=== PATIENT | male | born 2005 | race Hispanic/Latino ===

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

== ENCOUNTER 2024-01-07 13:12 | Emergency (ER) | payer OTHER ==
[2024-01-07 14:11] LABS: #Basophils 0.04 10x3/uL (0.0-0.2); #Monocytes 0.86 10x3/uL (0.0-1.1); #Neutrophils 7.57 10x3/uL (1.5-8.4); %Basophils 0.3 % (0.0-2.0); %Eosinophils 2.6 % (0.0-6.0); %Lymphocytes 23.2 % (18.0-47.0); %Monocytes 7.5 % (0.0-10.0); %Neutrophils 66.1 % (40.0-75.0); Hematocrit 34.1 % (38.8-50.0); Hemoglobin 10.8 g/dL (13.5-17.5); Mean Corpuscular HGB CONC 31.7 g/dL (32.0-36.0); Mean Corpuscular Hemoglobin 26.9 pg (27.0-33.0); Mean Platelet Volume 9.2 fL (7.4-10.4); Platelet Count 452 10x3/uL (150-450); RBC Distribution Width 13.9 % (11.5-14.5); Red Blood Cell (RBC) Count 4.01 10x6/uL (4.32-5.72); White Blood Cell (WBC) Count 11.5 10x3/uL (3.5-10.5)
[2024-01-07 14:18] LABS: ALT (SGPT) 29 U/L (8-55); AST (SGOT) 18 U/L (5-34); Albumin 3.3 g/dL (3.5-5.0); Alkaline Phosphatase 135 U/L (40-110); Anion Gap 14 mmol/L (10-20); BUN (Urea Nitrogen) 10 mg/dL (8.9-20.6); Bilirubin, Total 0.3 mg/dL (0.2-1.2); Calc. Creatinine Clearance 0 mL/min (70-130); Calcium 9.7 mg/dL (7.8-10.44); Carbon Dioxide 27 mmol/L (22-29); Chloride 101 mmol/L (98-107); Estimated GFR 128; Globulin 5.2 g/dL (2.4-3.5); Glucose 100 mg/dL (70-105); Potassium 3.9 mmol/L (3.5-5.1); Protein, Total 8.5 g/dL (6.0-8.3); Sodium 138 mmol/L (136-145)
[2024-01-07] MEDS ORDERED: Ondansetron PF 4 MG/2 ML Vial ONE (15:47)
[2024-01-07] MEDS ORDERED: Morphine 4 MG/ML VIAL ONE (15:47)
[2024-01-07] MEDS ORDERED: Dicyclomine 20 MG/2 ML VIAL ONE (17:42)
== END 2024-01-07 18:35 | disposition home or self-care (01) ==
LOC: CSHERS 13:12
DX: R10.84 Generalized abdominal pain (principal); R11.0 Nausea
CPT/HCPCS: 74177; 80053; 83690; 85025; 96372; 96374; 96375; J2272; J2405